=== PATIENT | female | born 1995 | race Caucasian/White ===

== ENCOUNTER 2017-10-21 09:23 | Emergency (ER) | payer SELFPAY ==
[~2017-10-21] VITALS: Ht 175.3 cm; Wt 68.1 kg
[2017-10-21 10:43] VITALS: BP 110/67
== END 2017-10-21 11:41 | disposition home or self-care (01) ==
LOC: EMS 09:24
DX: M54.5 Low back pain (principal); Z88.0 Allergy status to penicillin; V43.52XA Car driver injured in collision with other type car in traffic accident, initial encounter; Y93.89 Activity, other specified; Y92.89 Other specified places as the place of occurrence of the external cause; Y99.8 Other external cause status
CPT/HCPCS: 99283